=== PATIENT | female | born 1980 | race African-American/Black ===

== ENCOUNTER 2021-10-31 14:40 | Emergency (ER) | payer OTHER ==
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
[2021-10-31] MEDS ORDERED: DIAZEPAM 5 MG TABLET ONE (17:46)
[2021-10-31] MEDS ORDERED: HYDROCODONE/APAP 5/325 MG TAB ONE (17:47)
[2021-10-31] MEDS ORDERED: KETOROLAC 30 MG/ML INJ ONE (17:47)
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
[2021-10-31 19:42] VITALS: BP 144/96; TEMP 98.1; O2SAT 100
== END 2021-10-31 18:54 | disposition home or self-care (01) ==
LOC: ER 14:40
DX: S29.012A Strain of muscle and tendon of back wall of thorax, initial encounter (principal); E11.9 Type 2 diabetes mellitus without complications; Z79.4 Long term (current) use of insulin; I10 Essential (primary) hypertension; Z88.0 Allergy status to penicillin
CPT/HCPCS: 72125; 96372; 99283